=== PATIENT | female | born 1960 | race Caucasian/White ===

== ENCOUNTER 2018-01-28 17:09 | Emergency (ER) | payer OTHER ==
[~2018-01-28] VITALS: Ht 152.4 cm; Wt 68.2 kg
[~2018-01-28 17:09] MED LIST: AMOXICILLIN 50500 MG PO; BIAXIN FILMTAB500 MG PO; DARVOCET N; DOXYCYCLINE 10100 MG PO; LEVAQUIN PO; SPORANOX 1100 MG/CAP; TOPROL XL 25MG25 MG PO; VICODIN PO
[2018-01-28 17:14] VITALS: TEMP 98
[2018-01-28 17:44] LABS: ALBUMIN 4.7 gm/dL (3.5-5.0); BILIRUBIN,TOTAL 0.5 mg/dL (0.0-1.0); C-REACTIVE PROTEIN 0.9 mg/dL (0.0-0.9); CALCIUM 9.3 mg/dL (8.4-10.2); CREATININE, serum 0.58 mg/dL (0.52-1.25); POTASSIUM 3.7 mmol/L (3.4-5.0); TOTAL PROTEIN 7.8 gm/dL (6.4-8.2)
[2018-01-28 18:11] LABS: COLLECTION METHOD CLEAN CATCH
[2018-01-28 18:22] LABS: PH 7 (5-8); SQUAMOUS EPITHELIAL 0-2 /hpf; URINE APPEARANCE Clear; URINE BACTERIA Rare /hpf; URINE BILIRUBIN Negative (NEGATIVE); URINE BLOOD 1+ (NEGATIVE); URINE COLOR Straw; URINE GLUCOSE Negative (NEGATIVE); URINE KETONE Negative (NEGATIVE); URINE LEUKOCYTE ESTERASE 1+ (NEGATIVE); URINE NITRATE Negative (NEGATIVE); URINE PROTEIN(semi-quant) Negative (NEGATIVE); URINE RBC 0-2 /hpf; URINE UROBILINOGEN Negative (NEGATIVE)
[2018-01-28 18:35] LABS: BASO % 0.4 % (0.0-2.0); EOS # 0.1 (0.0-0.7); EOS % 1.1 % (0-4.0); GRAN # 6.9 (1.4-6.5); HEMATOCRIT 44.1 % (37.0-47.0); HEMOGLOBIN 14.6 g/dl (12.5-16.0); LYMPH # 3.3 (1.2-3.4); LYMPH % 29.9 % (20.0-51.0); MEAN CELL VOLUME 85 fl (80.0-100.0); MEAN CORPUSCULAR HEMOGLOBIN 28 pg (27.0-31.0); MEAN CORPUSCULAR HGB CONC 33 g/dl (33.0-37.0); MEAN PLATELET VOLUME 11.8 fl (7.4-10.4); MONO # 0.6 (0.1-0.6); MONO % 5.4 % (1.7-9.3); PLATELET COUNT 252 K/mm3 (130-400); RED BLOOD COUNT 5.21 M/mm3 (4.10-5.30); REDCELL DISTRIBUTION WIDTH-CV 13.5 % (11.5-14.5)
[2018-01-28] MEDS ORDERED: NORVASC 5MG5 MG/TAB PO (19:15)
[2018-01-28] MEDS ORDERED: MACROBID 1100 MG/CAP PO (19:47)
[2018-01-28 20:00] VITALS: BP 155/87; PULSE 81
== END 2018-01-28 20:00 | disposition home or self-care (01) ==
LOC: COL.ER 17:09
PROVIDERS: Family Medicine
DX: N39.0 Urinary tract infection, site not specified (principal); I10 Essential (primary) hypertension; R41.82 Altered mental status, unspecified
CPT/HCPCS: J0696; J2405; J7030

== ENCOUNTER → 2019-01-08 | Outpatient (CLI) | payer OTHER ==
[~2019-01-08] MED LIST changes: +MACROBID 1100 MG/CAP PO; +NORVASC 5MG5 MG/TAB PO
== END ==
LOC: MC.RAD 12-01 14:00
DX: Z12.31 Encounter for screening mammogram for malignant neoplasm of breast (principal); N63.20 Unspecified lump in the left breast, unspecified quadrant; N64.89 Other specified disorders of breast

== ENCOUNTER → 2019-01-14 | Outpatient (CLI) | payer OTHER | LOC: MC.RAD 13:56 | DX: N63.21 Unspecified lump in the left breast, upper outer quadrant (principal); N60.01 Solitary cyst of right breast; N64.89 Other specified disorders of breast | CPT/HCPCS: G0279 ==

== ENCOUNTER → 2019-01-22 | Outpatient (CLI) | payer OTHER | LOC: MC.RAD 12:59 | DX: N64.89 Other specified disorders of breast (principal); N63.20 Unspecified lump in the left breast, unspecified quadrant; Z98.82 Breast implant status ==

== ENCOUNTER 2019-02-17 06:48 | Day surgery (SDC) | payer OTHER ==
[~2019-02-17] VITALS: Ht 162.6 cm; Wt 82.2 kg
[2019-02-17 08:12] VITALS: BP 145/71; PULSE 79; TEMP 97.9
[2019-02-17 12:15] VITALS: BP 130/77; PULSE 97; TEMP 98.2
[2019-02-17 12:30] VITALS: BP 128/73; PULSE 97
[2019-02-17 12:45] VITALS: BP 119/75; PULSE 89
[2019-02-17 13:00] VITALS: BP 119/65; PULSE 86; TEMP 98.2
[2019-02-17] MEDS ORDERED: NORCO 325 MG-51 TAB PO (14:33)
--- NOTE | 2019-02-17 16:22 | NUR ---
PATIENT RETURNS VIA CART FROM OR. VS STARTED. CALL LIGHT IN REACH. AT BEDSIDE. WILL CONTINUE TO MONITOR.
--- NOTE | 2019-02-17 16:23 | NUR ---
MUFFIN AND JUICE GIVEN TO PATIENT. CALL LIGHT IN REACH. AMBULATED TO THE BATHROOM.
--- NOTE | 2019-02-17 16:24 | NUR ---
DISCHARGE INSTRUCTIONS GIVEN TO PATIENT AND . VERBALIZED UNDERSTADING. TO PERSONAL CAR IN WHEELCHAIR.
[2019-02-17 16:50] VITALS: BP 146/78; PULSE 84; TEMP 97.8
--- NOTE | 2019-02-17 16:59 | NUR ---
PATIENT DISCHARGED TO HOME. VERBALIZED INSTRUCTIONS. SENT HOME VIA WC TO PERSONAL CAR. REGAN HAS [employer] SCRIPT.
== END 2019-02-17 16:50 | disposition home or self-care (01) ==
LOC: SDCO 06:48
DX: C50.412 Malignant neoplasm of upper-outer quadrant of left female breast (principal); Z17.0 Estrogen receptor positive status [ER+]; Z80.3 Family history of malignant neoplasm of breast; I10 Essential (primary) hypertension; E78.5 Hyperlipidemia, unspecified; Z79.899 Other long term (current) drug therapy; Z80.0 Family history of malignant neoplasm of digestive organs; G89.29 Other chronic pain; M79.671 Pain in right foot; K21.9 Gastro-esophageal reflux disease without esophagitis
CPT/HCPCS: A9541; J0690; J1100; J1885; J2250; J2405; J2704; J2765; J2795; J3010; J7120

== ENCOUNTER 2019-03-05 05:36 | Day surgery (SDC) | payer OTHER ==
[~2019-03-05] VITALS: Ht 149.9 cm; Wt 81.8 kg
[~2019-03-05 05:36] MED LIST changes: +NORCO 325 MG-51 TAB PO
[2019-03-05 06:06] VITALS: BP 164/64; PULSE 84; TEMP 98.7
--- NOTE | 2019-03-05 06:19 | NUR ---
TO RM AT 0541- CALL LIGHT IN REACH AT BEDSIDE.
[2019-03-05 09:13] VITALS: BP 149/78; PULSE 81; TEMP 97.6
--- NOTE | 2019-03-05 09:13 | NUR ---
TO RM PER CART FROM PACU. ALERT ORIENTED X3, TALKING TO STAFF AND . DRESSING OVER INCISION CLEAN DRY INTACT. C/O PAIN 3/10 AND DENIES NEED FOR PAIN MEDS AT THIS TIME. ICE OVER INCISION SITE. PATIENT STATED THE ICE HELPS.
[2019-03-05 09:30] VITALS: BP 152/74; PULSE 83
--- NOTE | 2019-03-05 09:30 | NUR ---
RECEIVED ELISHA PUDDING AND CRANBERRY JUICE.
[2019-03-05 09:45] VITALS: BP 134/64; PULSE 82
--- NOTE | 2019-03-05 09:45 | NUR ---
ATE 100% AND TOLERATED WELL. DRESSING CONTINUES TO CLEAN AND DRY. DENIES ANY PAIN PAIN MEDS AT THIS TIME.
--- NOTE | 2019-03-05 10:00 | NUR ---
UP AMBULATED TO BATHROOM WITH . VOIDED AND TOLERATED WELL.
--- NOTE | 2019-03-05 10:10 | NUR ---
RECEIVED DISCHARGE INSTRUCTIONS AND VERBALIZED UNDERSTANDING. DISCONTINUED IV AND INT- CATHETER INTACT.
--- NOTE | 2019-03-05 10:20 | NUR ---
DISCHARGED PER WC BY NURSING STAFF TO PRIVATE CAR IN CARE OF -[facility].
== END 2019-03-05 10:44 | disposition home or self-care (01) ==
LOC: SDCO 05:36
DX: C50.412 Malignant neoplasm of upper-outer quadrant of left female breast (principal); Z79.899 Other long term (current) drug therapy; I10 Essential (primary) hypertension; E78.5 Hyperlipidemia, unspecified; Z80.3 Family history of malignant neoplasm of breast; Z80.0 Family history of malignant neoplasm of digestive organs; Z80.8 Family history of malignant neoplasm of other organs or systems; K21.9 Gastro-esophageal reflux disease without esophagitis; G89.29 Other chronic pain; M79.671 Pain in right foot
CPT/HCPCS: J0690; J1100; J2270; J2405; J2704; J3010; J7120

== ENCOUNTER → 2020-01-18 | Outpatient (CLI) | payer OTHER | LOC: MC.RAD 13:54 | DX: C50.412 Malignant neoplasm of upper-outer quadrant of left female breast (principal); I10 Essential (primary) hypertension | CPT/HCPCS: G0279 ==

== ENCOUNTER → 2021-03-28 | Outpatient (CLI) | payer OTHER | LOC: MC.RAD 14:30 | DX: Z12.31 Encounter for screening mammogram for malignant neoplasm of breast (principal); Z90.12 Acquired absence of left breast and nipple ==

== ENCOUNTER → 2022-05-08 | Outpatient (CLI) | payer OTHER | LOC: MC.RAD 10:59 | DX: Z12.31 Encounter for screening mammogram for malignant neoplasm of breast (principal) ==

== ENCOUNTER → 2024-07-30 | Outpatient (CLI) | payer OTHER | LOC: MC.RAD 11:09 | DX: Z12.31 Encounter for screening mammogram for malignant neoplasm of breast (principal); R92.0 Mammographic microcalcification found on diagnostic imaging of breast ==

== ENCOUNTER 2024-08-25 20:53 | Emergency (ER) | payer OTHER ==
[~2024-08-25] VITALS: Ht 152.4 cm; Wt 79.5 kg
[2024-08-25 20:58] VITALS: TEMP 98.1
[2024-08-25 21:17] LABS: BASO # 0.1 K/mm3 (0.0-0.2); BASO % 0.3 % (0.0-2.0); EOS # 0.1 K/mm3 (0.0-0.7); EOS % 0.5 % (0.0-4.0); GRAN # 11.7 K/mm3 (1.4-6.5); GRAN % 68.8 % (42.2-75.2); LYMPH # 3.8 K/mm3 (1.2-3.4); LYMPH % 22.3 % (20.0-51.0); MEAN CELL VOLUME 85 fl (80.0-100.0); MEAN CORPUSCULAR HEMOGLOBIN 28 pg (27-31); MEAN CORPUSCULAR HGB CONC 33 g/dl (33.0-37.0); MONO # 1.3 K/mm3 (0.1-0.6); MONO % 7.7 % (1.7-9.3); PLATELET COUNT 327 K/mm3 (130-400); RED BLOOD COUNT 5.42 M/mm3 (4.10-5.30); REDCELL DISTRIBUTION WIDTH-CV 13.7 % (11.5-14.5)
[2024-08-25 21:37] LABS: BILIRUBIN,TOTAL 0.4 mg/dL (0.2-1.2); CREATININE, serum 0.67 mg/dL (0.57-1.11); POTASSIUM 3.8 mEq/L (3.5-4.5); TOTAL PROTEIN 8.3 g/dl (6.2-8.1)
[2024-08-25 21:43] LABS: TROPONIN-I 0.031 ng/mL (0.00-0.033)
[2024-08-25 22:18] LABS: COLLECTION METHOD CLEAN CATCH
[2024-08-25 22:28] LABS: PH 7.5 (5.0-8.5); URINE APPEARANCE CLEAR (CLEAR/HAZY); URINE BLOOD NEGATIVE (NEGATIVE); URINE COLOR YELLOW (YELLOW); URINE GLUCOSE NEGATIVE (NEGATIVE); URINE KETONE NEGATIVE (NEGATIVE); URINE NITRATE NEGATIVE (NEGATIVE); URINE PROTEIN(semi-quant) NEGATIVE (NEGATIVE); URINE UROBILINOGEN 0.2 E.U/dL (0.2-1.0)
[2024-08-25] MEDS ORDERED: Ketorolac 30 MG/ML VIAL IV ONE (23:00)
[2024-08-25] MEDS ORDERED: Acetaminophen 325 MG TAB PO ONE (23:00)
[2024-08-25] MEDS ORDERED: diphenhydrAMINE 50 MG/ML 1 ML VIAL IV ONE (23:00)
[2024-08-26 00:08] VITALS: BP 135/73; PULSE 87
== END 2024-08-26 00:10 | disposition home or self-care (01) ==
LOC: COL.ER 20:53
PROVIDERS: Nurse Practitioner Primary Care
DX: R07.1 Chest pain on breathing (principal); Z20.822 Contact with and (suspected) exposure to COVID-19
CPT/HCPCS: J1200; J1885